=== PATIENT | male | born 1990 | race Caucasian/White ===

== ENCOUNTER → 2016-12-27 | Outpatient (CLI) | payer OTHER ==
--- NOTE | 2016-12-28 21:36 | DI ---
Indication: [email or web address]: DX TESTING PROCEDURE: LUMBAR SPINE 3 VIEWS: Encounter: Initial Comparison: None Findings: No acute fracture or subluxation seen. Alignment is normal. There is mild biconcave wedging of L1, likely chronic. Inferior endplate deformity of L2 also appears chronic. 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 There is mild disk space narrowing at L1-L2 and L2-L3. The remaining disk spaces appear normal. Impression: Findings as above. .
--- NOTE | 2016-12-28 21:36 | DI ---
Indication: [email or web address]: DX TESTING PROCEDURE: THORACIC SPINE 2 VIEW: Encounter: Initial Comparison: None Findings: Alignment of the thoracic spine is within normal limits. No acute fracture or subluxation seen. The vertebral body heights and disk spaces are maintained. No significant degenerative changes. Mild probably physiologic wedging of T12. Impression: No acute osseous abnormality. .
== END ==
LOC: IMA 17:11
DX: Z02.89 Encounter for other administrative examinations (principal)